=== PATIENT | male | born 1970 | race American Indian/Alaskan Native ===

== ENCOUNTER 2018-06-13 03:10 | Emergency (ER) | payer MEDICAID ==
[2018-06-13] MEDS ORDERED: HALDOL IM PRN (04:11)
[2018-06-13] MEDS ORDERED: ATIVAN IM PRN (04:11)
--- NOTE | 2018-06-13 04:14 | Emergency Department Report ---
ED General Adult HPI - General Chief complaint: Altered Mental Status Stated complaint: AMS Time Seen by Provider: 06/13/18 04:03 Source: EMS (ems notes not available at time of chart dictation), RN notes reviewed Mode of arrival: Stretcher Limitations: Altered Mental Status, Other (patient is intoxicated) - History of Present Illness Initial comments: This is a 48-year-old gentleman who is not known to this provider previously, who is brought to the hospital by emergency medical services. Apparently, the patient's cousin indicated that the patient took one ecstasy pill. The patient is now not acting normally. The patient is nonverbal to this provider. Eyes open spontaneously. He apparently would say "okay" to nurses. He would open his eyes spontaneously and to tactile stimuli. No additional history is available at this time. EMS notes not available at this time. No family or friends available at this time. -: This morning Consistency: constant Improves with: none Worsens with: none - Related Data Allergies Allergy/AdvReac Type Severity Reaction Status Date / Time Unable to Assess Allergy Unverified 06/13/18 03:43 ED Review of Systems ROS: Stated complaint: AMS Other details as noted in HPI Comment: Unobtainable due to pts medical conditions ED Past Medical Hx - Past Medical History Previous Medical History?: Yes Hx Diabetes: Yes - Social History Smoking Status: Unknown if ever smoked ED Physical Exam - General Limitations: Altered Mental Status, Other (intoxicated) General appearance: anxious - Head Head exam: Present: atraumatic, normocephalic - Eye Eye exam: Present: normal appearance, PERRL, EOMI - ENT ENT exam: Present: normal exam, mucous membranes moist, normal external ear exam - Neck Neck exam: Present: normal inspection, full ROM, other (right-sided soft tissue swelling noted.). Absent: tenderness, meningismus - Respiratory Respiratory exam: Present: normal lung sounds bilaterally. Absent: respiratory distress - Cardiovascular Cardiovascular Exam: Present: regular rate, normal rhythm, normal heart sounds. Absent: bradycardia, tachycardia, irregular rhythm, systolic murmur, diastolic murmur, rubs, gallop - GI/Abdominal GI/Abdominal exam: Present: soft. Absent: distended, tenderness, guarding, rebound, rigid, pulsatile mass - Rectal Rectal exam: Present: deferred - exam: Present: normal inspection External exam: Present: normal external exam - Extremities Exam Extremities exam: Present: other (2+ pulses noted in the bilateral upper, lower extremities. Compartments soft. No long bony tenderness. The pelvis is stable.). Absent: tenderness, pedal edema, calf tenderness - Back Exam Back exam: Present: normal inspection. Absent: tenderness, CVA tenderness (R), paraspinal tenderness, vertebral tenderness - Neurological Exam Neurological exam: Present: altered, other (eyes open spontaneously and blink spontaneously. When the patient's right upper extremity is lifted up, he holds it there. He also left upper extremity up against gravity as well. No clonus. Unable to perform detailed neurologic examination secondary to altered mental status. Patient blinks and response to threat.) - Psychiatric Psychiatric exam: Present: other - Skin Skin exam: Present: warm, dry, intact, normal color. Absent: rash ED Course Vital Signs 06/13/18 06/13/18 06/13/18 03:43 04:18 04:30 Temperature 98.3 F Pulse Rate 108 H 102 H 97 H Respiratory 27 H 29 H 30 H Rate Blood Pressure 154/84 [Right] O2 Sat by Pulse 97 98 98 Oximetry 06/13/18 06/13/18 06/13/18 04:56 05:00 05:16 Temperature Pulse Rate 93 H 90 92 H Respiratory 23 23 37 H Rate Blood Pressure [Right] O2 Sat by Pulse 100 98 98 Oximetry 06/13/18 06/13/18 06/13/18 05:30 05:46 06:00 Temperature Pulse Rate 94 H 95 H 88 Respiratory 28 H 24 26 H Rate Blood Pressure [Right] O2 Sat by Pulse 92 95 93 Oximetry 06/13/18 06/13/18 06/13/18 06:16 06:30 06:46 Temperature Pulse Rate 90 92 H 88 Respiratory 27 H 26 H 25 H Rate Blood Pressure [Right] O2 Sat by Pulse 96 96 97 Oximetry 06/13/18 06/13/18 07:00 13:50 Temperature 97.7 F Pulse Rate 88 84 Respiratory 22 18 Rate Blood Pressure 136/63 [Right] O2 Sat by Pulse 97 84 Oximetry - Reevaluation(s) Reevaluation #1: 06/13/18 05:58 Differential diagnosis, including but not limited to: Intracranial injury, cervical spine injury, amphetamine, ecstasy intoxication Assessment and plan: 48-year-old gentleman who appears to be catatonic and intoxicated. Eyes open spontaneously, holding upper extremities against gravity without difficulty, noted to be moving lower extremities intermittently. Tachycardia resolved. This is most likely recreational ingestion, but the patient does not have the ability to care for himself. He is therefore placed on a 1013. The patient is medically suitable for psychiatric placement in consultation at this time. Reevaluation #2: 06/13/18 06:00 The patient does not appear to have an immediate medical contraindication to psychiatric admission, evaluation, placement at this time. Reevaluation #3: 06/13/18 20:21 The patient is reassessed. The patient's is clinically sober, alert and oriented 3, walking with a steady gait, and exhibits decision-making capacity. He indicates that his ingestion was recreational. He indicates that he has many things to live for. He indicates that he is not having hallucinations, and does not have access to guns or firearms. The patient now exhibits the ability to care for himself, and appears sober, lucid and rational. He now does not meet criteria for 1013. He is seen in conjunction with the pantry goods worker, Jeannine who agrees. The patient was counseled to refrain from recreational drug consumption in the future. 06/13/18 20:23 ED Medical Decision Making - Lab Data Result diagrams: 06/13/18 04:58 06/13/18 04:04 Vital Signs 06/13/18 03:43 Temperature 98.3 F Pulse Rate 108 H Respiratory 27 H Rate Blood Pressure 154/84 [Right] O2 Sat by Pulse 97 Oximetry Lab Results 06/13/18 06/13/18 06/13/18 Range/Units 04:04 04:04 04:04 WBC TNR RBC TNR Hgb TNR Hct TNR MCV TNR MCH TNR MCHC TNR RDW TNR Plt Count TNR Lymph % (Auto) TNR Barton % (Auto) TNR Eos % (Auto) TNR Baso % (Auto) TNR Lymph # TNR Barton # TNR Eos # TNR Baso # TNR Add Manual Diff TNR Seg Neutrophils % TNR Seg Neutrophils # TNR Sodium 140 (137-145) mmol/L Potassium 4.4 (3.6-5.0) mmol/L Chloride 101.9 (98-107) mmol/L Carbon Dioxide 24 (22-30) mmol/L Anion Gap 19 mmol/L BUN 13 (9-20) mg/dL Creatinine 1.1 (0.8-1.5) mg/dL Estimated GFR > 60 ml/min BUN/Creatinine Ratio 12 % Glucose 114 H (75-100) mg/dL Calcium 9.3 (8.4-10.2) mg/dL Magnesium (1.7-2.3) mg/dL Total Bilirubin 0.30 (0.1-1.2) mg/dL AST 20 (5-40) units/L ALT 23 (7-56) units/L Alkaline Phosphatase 94 (35-129) units/L Total Creatine Kinase (55-170) units/L Total Protein 7.4 (6.3-8.2) g/dL Albumin 4.3 (3.9-5) g/dL Albumin/Globulin Ratio 1.4 % TSH 0.424 (0.270-4.200) mlU/mL Urine Color (Yellow) Urine Turbidity (Clear) Urine pH (5.0-7.0) Ur Specific [place] (1.003-1.030) Urine Protein (Negative) mg/dL Urine Glucose (UA) (Negative) mg/dL Urine Ketones (Negative) mg/dL Urine Blood (Negative) Urine Nitrite (Negative) Urine Bilirubin (Negative) Urine Urobilinogen (<2.0) mg/dL Ur Leukocyte Esterase (Negative) Urine WBC (Auto) (0.0-6.0) /HPF Urine RBC (Auto) (0.0-6.0) /HPF Amorphous Crystals Salicylates (2.8-20.0) mg/dL Urine Opiates Screen Urine Methadone Screen Acetaminophen (10.0-30.0) ug/mL Ur Barbiturates Screen Ur Phencyclidine Scrn Ur Amphetamines Screen U Benzodiazepines Scrn Urine Cocaine Screen U Marijuana (THC) Screen Drugs of Abuse Note Plasma/Serum Alcohol (0-0.07) % 06/13/18 06/13/18 06/13/18 Range/Units 04:04 04:15 04:15 WBC RBC Hgb Hct MCV MCH MCHC RDW Plt Count Lymph % (Auto) Barton % (Auto) Eos % (Auto) Baso % (Auto) Lymph # Barton # Eos # Baso # Add Manual Diff Seg Neutrophils % Seg Neutrophils # Sodium (137-145) mmol/L Potassium (3.6-5.0) mmol/L Chloride (98-107) mmol/L Carbon Dioxide (22-30) mmol/L Anion Gap mmol/L BUN (9-20) mg/dL Creatinine (0.8-1.5) mg/dL Estimated GFR ml/min BUN/Creatinine Ratio % Glucose (75-100) mg/dL Calcium (8.4-10.2) mg/dL Magnesium 1.80 (1.7-2.3) mg/dL Total Bilirubin (0.1-1.2) mg/dL AST (5-40) units/L ALT (7-56) units/L Alkaline Phosphatase (35-129) units/L Total Creatine Kinase 333 H (55-170) units/L Total Protein (6.3-8.2) g/dL Albumin (3.9-5) g/dL Albumin/Globulin Ratio % TSH (0.270-4.200) mlU/mL Urine Color (Yellow) Urine Turbidity (Clear) Urine pH (5.0-7.0) Ur Specific [place] (1.003-1.030) Urine Protein (Negative) mg/dL Urine Glucose (UA) (Negative) mg/dL Urine Ketones (Negative) mg/dL Urine Blood (Negative) Urine Nitrite (Negative) Urine Bilirubin (Negative) Urine Urobilinogen (<2.0) mg/dL Ur Leukocyte Esterase (Negative) Urine WBC (Auto) (0.0-6.0) /HPF Urine RBC (Auto) (0.0-6.0) /HPF Amorphous Crystals Salicylates < 0.3 L (2.8-20.0) mg/dL Urine Opiates Screen Urine Methadone Screen Acetaminophen (10.0-30.0) ug/mL Ur Barbiturates Screen Ur Phencyclidine Scrn Ur Amphetamines Screen U Benzodiazepines Scrn Urine Cocaine Screen U Marijuana (THC) Screen Drugs of Abuse Note Plasma/Serum Alcohol < 0.01 (0-0.07) % 06/13/18 06/13/18 06/13/18 Range/Units 04:15 04:18 04:18 WBC RBC Hgb Hct MCV MCH MCHC RDW Plt Count Lymph % (Auto) Barton % (Auto) Eos % (Auto) Baso % (Auto) Lymph # Barton # Eos # Baso # Add Manual Diff Seg Neutrophils % Seg Neutrophils # Sodium (137-145) mmol/L Potassium (3.6-5.0) mmol/L Chloride (98-107) mmol/L Carbon Dioxide (22-30) mmol/L Anion Gap mmol/L BUN (9-20) mg/dL Creatinine (0.8-1.5) mg/dL Estimated GFR ml/min BUN/Creatinine Ratio % Glucose (75-100) mg/dL Calcium (8.4-10.2) mg/dL Magnesium (1.7-2.3) mg/dL Total Bilirubin (0.1-1.2) mg/dL AST (5-40) units/L ALT (7-56) units/L Alkaline Phosphatase (35-129) units/L Total Creatine Kinase (55-170) units/L Total Protein (6.3-8.2) g/dL Albumin (3.9-5) g/dL Albumin/Globulin Ratio % TSH (0.270-4.200) mlU/mL Urine Color Yellow (Yellow) Urine Turbidity Slightly-cloudy (Clear) Urine pH 5.0 (5.0-7.0) Ur Specific [place] 1.025 (1.003-1.030) Urine Protein 100 mg/dl (Negative) mg/dL Urine Glucose (UA) 50 (Negative) mg/dL Urine Ketones Neg (Negative) mg/dL Urine Blood Neg (Negative) Urine Nitrite Neg (Negative) Urine Bilirubin Neg (Negative) Urine Urobilinogen < 2.0 (<2.0) mg/dL Ur Leukocyte Esterase Neg (Negative) Urine WBC (Auto) < 1.0 (0.0-6.0) /HPF Urine RBC (Auto) 2.0 (0.0-6.0) /HPF Amorphous Crystals 1+ Salicylates (2.8-20.0) mg/dL Urine Opiates Screen Presumptive negative Urine Methadone Screen Presumptive positive Acetaminophen < 5.0 L (10.0-30.0) ug/mL Ur Barbiturates Screen Presumptive negative Ur Phencyclidine Scrn Presumptive negative Ur Amphetamines Screen Presumptive negative U Benzodiazepines Scrn Presumptive negative Urine Cocaine Screen Presumptive positive U Marijuana (THC) Screen Presumptive positive Drugs of Abuse Note Disclamer Plasma/Serum Alcohol (0-0.07) % 06/13/18 Range/Units 04:58 WBC 11.9 H RBC 5.17 H Hgb 16.4 H Hct 48.7 H MCV 94 MCH 32 MCHC 34 RDW 13.7 Plt Count 204 Lymph % (Auto) 21.1 Barton % (Auto) 7.0 Eos % (Auto) 0.1 Baso % (Auto) 0.7 Lymph # 2.5 Barton # 0.8 Eos # 0.0 Baso # 0.1 Add Manual Diff Seg Neutrophils % 71.1 H Seg Neutrophils # 8.5 H Sodium (137-145) mmol/L Potassium (3.6-5.0) mmol/L Chloride (98-107) mmol/L Carbon Dioxide (22-30) mmol/L Anion Gap mmol/L BUN (9-20) mg/dL Creatinine (0.8-1.5) mg/dL Estimated GFR ml/min BUN/Creatinine Ratio % Glucose (75-100) mg/dL Calcium (8.4-10.2) mg/dL Magnesium (1.7-2.3) mg/dL Total Bilirubin (0.1-1.2) mg/dL AST (5-40) units/L ALT (7-56) units/L Alkaline Phosphatase (35-129) units/L Total Creatine Kinase (55-170) units/L Total Protein (6.3-8.2) g/dL Albumin (3.9-5) g/dL Albumin/Globulin Ratio % TSH (0.270-4.200) mlU/mL Urine Color (Yellow) Urine Turbidity (Clear) Urine pH (5.0-7.0) Ur Specific [place] (1.003-1.030) Urine Protein (Negative) mg/dL Urine Glucose (UA) (Negative) mg/dL Urine Ketones (Negative) mg/dL Urine Blood (Negative) Urine Nitrite (Negative) Urine Bilirubin (Negative) Urine Urobilinogen (<2.0) mg/dL Ur Leukocyte Esterase (Negative) Urine WBC (Auto) (0.0-6.0) /HPF Urine RBC (Auto) (0.0-6.0) /HPF Amorphous Crystals Salicylates (2.8-20.0) mg/dL Urine Opiates Screen Urine Methadone Screen Acetaminophen (10.0-30.0) ug/mL Ur Barbiturates Screen Ur Phencyclidine Scrn Ur Amphetamines Screen U Benzodiazepines Scrn Urine Cocaine Screen U Marijuana (THC) Screen Drugs of Abuse Note Plasma/Serum Alcohol (0-0.07) % - EKG Data -: EKG Interpreted by Me EKG shows normal: sinus rhythm Rate: normal - EKG Data When compared to previous EKG there are: previous EKG unavailable 06/13/18 05:58 Sinus rhythm, 99 beats per minutes, borderline left axis deviation, left anterior fascicular block, early repolarization, abnormal EKG, not consistent with ST elevation myocardial infarction. - Radiology Data Radiology results: report reviewed, image reviewed Noncontrast CT scan of the brain is negative for acute disease. CT scan of the cervical spine is negative for acute traumatic disease. Incidental soft tissue lesion is noted. Critical care attestation.: If time is entered above; I have spent that time in minutes in the direct care of this critically ill patient, excluding procedure time. ED Disposition Clinical Impression: History of abuse of recreational drug Disposition: DC-01 TO HOME OR SELFCARE Is pt being admited?: No Does the pt Need Aspirin: No Condition: Stable Additional Instructions: Please make certain to refrain from using recreational drugs. Long-term consumption of recreational drugs can cause disability, paralysis, , loss of quality of life. Follow-up with the primary care doctor within the next month. Return to the emergency room right away with fevers, chills, lethargy, irritability, projectile vomiting, change in mental status, confusion, inability to tolerate liquid feeds, cessation of homicidality, suicidality. Referrals: CHELSEA JUAREZ MD [Primary Care Provider] - 3-5 Days [facility] [Provider Group] - 3-5 Days [facility] [Outside] - 3-5 Days
[2018-06-13 04:21] LABS: Hematocrit TNR % (35.5-45.6); Hemoglobin TNR gm/dl (11.8-15.2); Mean Corpuscular Volume TNR fl (84-94); Red Blood Count TNR M/mm3 (3.65-5.03)
[2018-06-13 04:22] LABS: Basophils % (Auto) TNR % (0.0-1.8); Eosinophils % (Auto) TNR % (0.0-4.3); Lymphocytes # (Auto) TNR K/mm3 (1.2-5.4); Lymphocytes % (Auto) TNR % (13.4-35.0); Mean Corpuscular HGB Conc TNR % (32-34); Mean Platelet Volume TNR fl (6-12); Monocytes # (Auto) TNR K/mm3 (0.0-0.8); Monocytes % (Auto) TNR % (0.0-7.3); Platelet Count TNR K/mm3 (140-440); Red Cell Distribution Width TNR % (13.2-15.2)
[2018-06-13 04:23] LABS: Basophils # (Auto) TNR K/mm3 (0.0-0.1); Eosinophils # (Auto) TNR K/mm3 (0.0-0.4)
[2018-06-13 04:36] LABS: Alanine Aminotransferase 23 units/L (7-56); Albumin 4.3 g/dL (3.9-5); BUN/Creatinine Ratio 12; Blood Urea Nitrogen 13 mg/dL (9-20); Calcium 9.3 mg/dL (8.4-10.2); Hemolysis Index 23
[2018-06-13 04:54] LABS: Amorphous Crystals,Urine 1+; Bilirubin,Urine NEG (Negative); Blood,Urine NEG (Negative); Color,Urine Yellow (Yellow); Urobilinogen,Urine < 2.0 mg/dL (<2.0); WBC,Urine < 1.0 /HPF (0.0-6.0)
[2018-06-13 04:58] LABS: Amphetamine Screen,Urine PRESUMPTIVE NEGATIVE; Benzodiazepines Screen,Urine PRESUMPTIVE NEGATIVE; Opiate Screen,Urine PRESUMPTIVE NEGATIVE
[2018-06-13 05:16] LABS: Basophils # (Auto) 0.1 K/mm3 (0.0-0.1); Basophils % (Auto) 0.7 % (0.0-1.8); Eosinophils % (Auto) 0.1 % (0.0-4.3); Hematocrit 48.7 % (35.5-45.6); Hemoglobin 16.4 gm/dl (11.8-15.2); Lymphocytes # (Auto) 2.5 K/mm3 (1.2-5.4); Lymphocytes % (Auto) 21.1 % (13.4-35.0); Mean Corpuscular HGB Conc 34 % (32-34); Mean Corpuscular Volume 94 fl (84-94); Monocytes # (Auto) 0.8 K/mm3 (0.0-0.8); Platelet Count 204 K/mm3 (140-440); Red Blood Count 5.17 M/mm3 (3.65-5.03); Red Cell Distribution Width 13.7 % (13.2-15.2)
--- NOTE | 2018-06-13 05:31 | Cat Scan Report ---
PROCEDURE: CT CERVICAL SPINE WO CON TECHNIQUE: Computerized tomography of the cervical spine was performed from the skull base to T1 wit hout contrast material. CT DOSE LENGTH PRODUCT: mGycm HISTORY: ams intox COMPARISONS: None . FINDINGS: The skull base and foramen magnum are intact. C1-2: No significant abnormality . C2-3: No significant abnormality . C3-4: No significant abnormality . C4-5: No significant abnormality . C5-6: No significant abnormality . C6-7: No significant abnormality . C7-T1: No significant abnormality . Fractures: None . Other: Prevertebral soft tissues are normal in thickness. There is a 6 cm mass in the right thyroid l obe. . IMPRESSION: No cervical spine fracture is identified. There is no malalignment. Prevertebral soft tissues are normal in thickness. There is a 6 cm mass in the right thyroid lobe. This document is electronically signed by Bipin Ovalles MD., June 13 2018 05:29:15 AM ET
--- NOTE | 2018-06-13 05:36 | Cat Scan Report ---
PROCEDURE: CT HEAD/BRAIN WO CON TECHNIQUE: Computerized tomography of the head was performed without contrast material. CT DOSE LENGTH PRODUCT: mGycm HISTORY: ams intox COMPARISONS: None . FINDINGS: Skull and scalp: Normal . Paranasal sinuses: Normal . Ventricles and subarachnoid spaces: Normal . Cerebrum: No evidence of hemorrhage, acute infarction or mass . Cerebellum and brainstem: No evidence of hemorrhage, acute infarction or mass . Vasculature: Normal . IMPRESSION: Normal Examination . This document is electronically signed by Bipin Ovalles MD., June 13 2018 05:34:21 AM ET
[2018-06-13 05:48] LABS: Cannabinoid Screen,Urine PRESUMPTIVE POSITIVE; Cocaine Screen,Urine PRESUMPTIVE POSITIVE; Methadone Screen,Urine PRESUMPTIVE POSITIVE
--- NOTE | 2018-06-13 11:03 | Consultation ---
History of Present Illness - Reason for Consult Consult date: 06/13/18 Reason for consult: Mental Health Evaluation Requesting physician: MILLIE PETERSEN - Chief Complaint Chief complaint: "The patient does not answer questions" - History of Present Psychiatric Illness 48-year-old AA male who presented to the ER for bizarre behavior. Per the record, the patient's cousin stated that he took an ecstasy pill. Today the patient is calm, but will not answer question during the assessment. Medications and Allergies Allergies Allergy/AdvReac Type Severity Reaction Status Date / Time Unable to Assess Allergy Unverified 06/13/18 03:43 Active Meds: Active Medications Haloperidol Lactate (Haldol) 5 mg IM Q6HR PRN PRN Reason: Agitation Lorazepam (Ativan) 2 mg IM Q4HR PRN PRN Reason: Agitation Past psychiatric history - Past Medical History Past Medical History: other (Unable to obtain) Past Surgical History: Other (Unable to obtain ) - past Psychiatric treatment and history psychiatric treatment history: Unable to obtain a psy hx and fam psy hx. - Social History Social history: other (Unable to obtain) Mental Status Exam - Vital signs Last Vital Signs Temp 98.3 F 06/13/18 03:43 Pulse 88 06/13/18 07:00 Resp 22 06/13/18 07:00 BP 154/84 06/13/18 03:43 Pulse Ox 97 06/13/18 07:00 - Exam Narrative exam: Unable to complete the MSE because of the patient's condition. Results Result Diagrams: 06/13/18 04:58 06/13/18 04:04 Abnormal lab results 06/13/18 06/13/18 06/13/18 Range/Units 04:04 04:15 04:15 WBC (4.5-11.0) K/mm3 RBC (3.65-5.03) M/mm3 Hgb (11.8-15.2) gm/dl Hct (35.5-45.6) % Seg Neutrophils % (40.0-70.0) % Seg Neutrophils # (1.8-7.7) K/mm3 Glucose 114 H (75-100) mg/dL Total Creatine Kinase 333 H (55-170) units/L Salicylates < 0.3 L (2.8-20.0) mg/dL Acetaminophen (10.0-30.0) ug/mL 06/13/18 06/13/18 Range/Units 04:15 04:58 WBC 11.9 H (4.5-11.0) K/mm3 RBC 5.17 H (3.65-5.03) M/mm3 Hgb 16.4 H (11.8-15.2) gm/dl Hct 48.7 H (35.5-45.6) % Seg Neutrophils % 71.1 H (40.0-70.0) % Seg Neutrophils # 8.5 H (1.8-7.7) K/mm3 Glucose (75-100) mg/dL Total Creatine Kinase (55-170) units/L Salicylates (2.8-20.0) mg/dL Acetaminophen < 5.0 L (10.0-30.0) ug/mL All other labs normal. Assessment and Plan Assessment and plan: Impression: Today the patient is calm, but will not answer question during the assessment. The patient is positive for methadone/ cocaine/marijuana. Recommendation/Plan: Continue 1013. Assess the patient is 24 hours. Dispo: Once a psy assessment is completed, proper dispo will be determined. Will staff with Dr Allan.
[2018-06-13 17:33] VITALS: BP 136/63
== END 2018-06-13 20:35 | disposition home or self-care (01) ==
LOC: EEVIPCON 03:10 → ED 03:10
DX: F06.1 Catatonic disorder due to known physiological condition (principal); F19.10 Other psychoactive substance abuse, uncomplicated; E11.9 Type 2 diabetes mellitus without complications
CPT/HCPCS: 36415; 70450; 72125; 80053; 80307; 81001; 82550; 82962; 83735; 84443; 85025; 93005; 93010; 99285; G0480; 80320